=== PATIENT | female | born 1985 | race Caucasian/White ===

== ENCOUNTER 2019-10-18 10:24 | Inpatient (IN) | payer OTHER ==
[~2019-10-18 10:24] MED LIST: Lidocaine 1.5% with EPINEPHrine 1:200,000 5 ML Amp ONE; Lidocaine 2% with EPINEPHrine 1:200,000 20 ML SDV ONE
[2019-10-18] MEDS ORDERED: Sodium Chloride 0.9% 10 ML Syringe FLUSH PRN (13:06)
[2019-10-18] MEDS ORDERED: Oxytocin/Lactated Ringers 10 UNIT/1,000 ML BAG IV SCH ×2 (13:15)
[2019-10-18] MEDS: Lactated Ringers 1,000 ML IV SCH ×3 (16:09→20:22)
[2019-10-18] MEDS ORDERED: diphenhydrAMINE 50 MG/ML SDV IVPUSH PRN (16:39)
[2019-10-18] MEDS ORDERED: ePHEDrine 50 MG/ML SDV IVPUSH PRN (16:39)
--- NOTE | 2019-10-18 16:40 | PCM.PREANE ---
Preanesthetic Assessment - Anesthesia/Transfusion/Family Hx Anesthesia History: Prior Anesthesia Without Reaction Transfusion History: No Prior Transfusion(s) - Review of Systems General: No Symptoms Pulmonary: No Symptoms Cardiovascular: No Symptoms Gastrointestinal: No Symptoms Neurological: No Symptoms Other: Reports: None - Physical Assessment Vital Signs: Last Vital Signs Temp 98.0 F 10/18/19 13:06 Pulse 99 10/18/19 13:06 Resp 16 10/18/19 13:06 BP 116/78 10/18/19 13:06 Pulse Ox 97 10/18/19 13:06 Height: 1.63 m Weight: 80.467 kg ASA Class: 2 Mental Status: Alert & Oriented x3 Airway Class: Mallampati = 2 Dentition: Reports: Normal Dentition Thyro-Mental Finger Breadths: 3 Mouth Opening Finger Breadths: 3 ROM/Head Extension: Full Lungs: Clear to Auscultation, Normal Respiratory Effort Cardiovascular: Regular Rate, Regular Rhythm - Lab Values: Laboratory Last Values WBC 12.08 K/mm3 (3.98-10.04) H 10/18/19 13:53 RBC 4.54 M/mm3 (3.98-5.22) 10/18/19 13:53 Hgb 13.5 gm/dl (11.2-15.7) 10/18/19 13:53 Hct 41.1 % (34.1-44.9) 10/18/19 13:53 MCV 90.5 fl (79.4-94.8) 10/18/19 13:53 MCH 29.7 pg (25.6-32.2) 10/18/19 13:53 MCHC 32.8 g/dl (32.2-35.5) 10/18/19 13:53 RDW Std Deviation 47.2 fL (36.4-46.3) H 10/18/19 13:53 Plt Count 207 K/mm3 (182-369) 10/18/19 13:53 MPV 11.3 fl (9.4-12.3) 10/18/19 13:53 Neut % (Auto) 76.8 % (34.0-71.1) H 10/18/19 13:53 Lymph % (Auto) 13.4 % (19.3-51.7) L 10/18/19 13:53 Barren % (Auto) 8.4 % (4.7-12.5) 10/18/19 13:53 Eos % (Auto) 0.5 (0.7-5.8) L 10/18/19 13:53 Baso % (Auto) 0.2 % (0.1-1.2) 10/18/19 13:53 Neut # (Auto) 9.29 K/mm3 (1.56-6.13) H 10/18/19 13:53 Lymph # (Auto) 1.62 K/mm3 (1.18-3.74) 10/18/19 13:53 Barren # (Auto) 1.01 K/mm3 (0.24-0.36) H 10/18/19 13:53 Eos # (Auto) 0.06 K/mm3 (0.04-0.36) 10/18/19 13:53 Baso # (Auto) 0.02 K/mm3 (0.01-0.08) 10/18/19 13:53 - Allergies Allergies/Adverse Reactions: Allergies Allergy/AdvReac Type Severity Reaction Status Date / Time Penicillins Allergy Mild Rash Verified 10/18/19 13:06 - Acknowledgements Anesthesia Type Planned: Epidural Pt an Appropriate Candidate for the Planned Anesthesia: Yes Alternatives and Risks of Anesthesia Discussed w Pt/Guardian: Yes Pt/Guardian Understands and Agrees with Anesthesia Plan: Yes PreAnesthesia Questionnaire HEENT History: Reports: Allergic Rhinitis Other HEENT History: cat and dog allergy - Infectious Disease History Infectious Disease History: Reports: None - Past Surgical History Head Surgeries/Procedures: Reports: None HEENT Surgical History: Reports: Oral Surgery Other HEENT Surgeries/Procedures: wisdon teeth extraction 2016 - SUBSTANCE USE Smoking Status *Q: Never Smoker Second Hand Smoke Exposure: No Recreational Drug Use History: No - HOME MEDS Home Medications: Home Meds Acetaminophen [Tylenol Extra Strength] 1,000 mg PO Q4H PRN 10/18/19 [History] Albuterol/Ipratropium [Combivent Respimat] 4 gm IH ASDIRECTED PRN 10/18/19 [ History] Pnv,Calcium 72/Iron/Folic Acid [Preplus Ca-Fe 27 mg-FA 1 mg Tb] 1 tab PO DAILY 10/18/19 [History] Psyllium Husk [Metamucil] 0.4 gm PO DAILY 10/18/19 [History] diphenhydrAMINE [Benadryl] 50 mg PO BEDTIME PRN 10/18/19 [History] - CURRENT (IN HOUSE) MEDS Current Meds: Current Medications Lactated Ringer's (Ringers, Lactated) 1,000 mls @ 100 mls/hr IV ASDIRECTED KIMBERLY Last Admin: 10/18/19 16:09 Dose: 100 mls/hr Oxytocin/Lactated Ringer's (Pitocin In Lr 10 Units/1,000 Ml) 10 unit in 1,000 mls @ 500 mls/hr IV .CONTINUOUS KIMBERLY Oxytocin/Lactated Ringer's (Pitocin In Lr 10 Units/1,000 Ml) 10 unit in 1,000 mls @ 12 mls/hr IV TITRATE KIMBERLY; Protocol Sodium Chloride (Saline Flush) 10 ml FLUSH ASDIRECTED PRN PRN Reason: Keep Vein Open Last Admin: 10/18/19 16:07 Dose: 10 ml
[2019-10-18] MEDS: fentaNYL 100 MCG/2 ML SDV EPIDUR PRN (19:04)
[2019-10-18] MEDS: Bupivacaine/fentaNYL/NS 100 ML Bag EPIDUR PRN (19:06)
[2019-10-19] MEDS: Bupivacaine/fentaNYL/NS 100 ML Bag EPIDUR PRN ×2 (00:06→04:43)
[2019-10-19] MEDS: Lactated Ringers 1,000 ML IV SCH (01:14)
[2019-10-19] MEDS: fentaNYL 100 MCG/2 ML SDV EPIDUR PRN (05:30)
--- NOTE | 2019-10-19 11:10 | PCM.LDHP ---
L&D History of Present Illness - General Date of Service: 10/18/19 Admit Problem/Dx: Patient Status Order with Admit Dx/Problem 10/19/19 08:10 Patient Status [ADT] Routine Admission Diagnosis/Problem Admission Diagnosis/Problem Term - History of Present Illness Introduction:: 34 year old at 39w1d presents for induction of labor. PNC with me complicated by arrhythmia that was short term. Saw Dr. Geller. IOL recommended at 39w. Pain Score: 2 - Related Data Allergies/Adverse Reactions: Allergies Allergy/AdvReac Type Severity Reaction Status Date / Time Penicillins Allergy Mild Rash Verified 10/18/19 13:06 Home Medications: Home Meds Acetaminophen [Tylenol Extra Strength] 1,000 mg PO Q4H PRN 10/18/19 [History] Albuterol/Ipratropium [Combivent Respimat] 4 gm IH ASDIRECTED PRN 10/18/19 [ History] Pnv,Calcium 72/Iron/Folic Acid [Preplus Ca-Fe 27 mg-FA 1 mg Tb] 1 tab PO DAILY 10/18/19 [History] Psyllium Husk [Metamucil] 0.4 gm PO DAILY 10/18/19 [History] diphenhydrAMINE [Benadryl] 50 mg PO BEDTIME PRN 10/18/19 [History] Past Medical History HEENT History: Reports: Allergic Rhinitis Other HEENT History: cat and dog allergy - Infectious Disease History Infectious Disease History: Reports: None - Past Surgical History Head Surgeries/Procedures: Reports: None HEENT Surgical History: Reports: Oral Surgery Other HEENT Surgeries/Procedures: wisdon teeth extraction 2015 Social & Family History - Family History Family Medical History: Noncontributory - Tobacco Use Smoking Status *Q: Never Smoker Second Hand Smoke Exposure: No - Caffeine Use Caffeine Use: Reports: None - Recreational Drug Use Recreational Drug Use: No H&P Review of Systems - Review of Systems: Review Of Systems: See Below General: Reports: No Symptoms HEENT: Reports: No Symptoms Pulmonary: Reports: No Symptoms Cardiovascular: Reports: No Symptoms Gastrointestinal: Reports: No Symptoms Genitourinary: Reports: No Symptoms Musculoskeletal: Reports: No Symptoms Skin: Reports: No Symptoms Psychiatric: Reports: No Symptoms Neurological: Reports: No Symptoms Hematologic/Lymphatic: Reports: No Symptoms Immunologic: Reports: No Symptoms L&D Exam - Exam Exam: See Below - Vital Signs Vital Signs: Last Vital Signs Temp 36.7 C 10/18/19 13:06 Pulse 99 10/18/19 13:06 Resp 16 10/18/19 13:06 BP 116/78 10/18/19 13:06 Pulse Ox 97 10/18/19 13:06 Weight: 80.467 kg - OB Specific Fundal Height In cm: 39 Contraction Intensity: Mild Movement: Active Heart Tones: Present - Ron Score Ron Score Cervix Position: Midposition Ron Score Consistency: Soft Ron Score Effacement: 51-70% Ron Score Dilation: 3-4 cm - Exam General: Alert, Oriented HEENT: PERRLA, Conjunctiva Clear, EACs Clear, EOMI, Hearing Intact, Mucosa Moist & [place], Nares Patent, Normal Nasal Septum, Posterior Pharynx Clear, TMs Clear Neck: Supple, Trachea Midline Lungs: Clear to Auscultation, Normal Respiratory Effort Cardiovascular: Regular Rate, Regular Rhythm GI/Abdominal Exam: Normal Bowel Sounds, Soft, Non-Tender, No Organomegaly, No Distention, No Abnormal Bruit, No Mass, Pelvis Stable Back Exam: Normal Inspection, Full Range of Motion Extremities: Normal Inspection, Normal Range of Motion, Non-Tender, No Pedal Edema, Normal Capillary Refill Skin: Warm, Dry, Intact Neurological: Cranial Nerves Intact, Reflexes Equal Bilateral Psychiatric: Alert, Normal Affect, Normal Mood - Patient Data Lab Results Last 24 hrs: Laboratory Results - last 24 hr 10/18/19 10/18/19 Range/Units 13:53 13:53 WBC 12.08 H (3.98-10.04) K/mm3 RBC 4.54 (3.98-5.22) M/mm3 Hgb 13.5 (11.2-15.7) gm/dl Hct 41.1 (34.1-44.9) % MCV 90.5 (79.4-94.8) fl MCH 29.7 (25.6-32.2) pg MCHC 32.8 (32.2-35.5) g/dl RDW Std Deviation 47.2 H (36.4-46.3) fL Plt Count 207 (182-369) K/mm3 MPV 11.3 (9.4-12.3) fl Neut % (Auto) 76.8 H (34.0-71.1) % Lymph % (Auto) 13.4 L (19.3-51.7) % [place] % (Auto) 8.4 (4.7-12.5) % Eos % (Auto) 0.5 L (0.7-5.8) Baso % (Auto) 0.2 (0.1-1.2) % Neut # (Auto) 9.29 H (1.56-6.13) K/mm3 Lymph # (Auto) 1.62 (1.18-3.74) K/mm3 [place] # (Auto) 1.01 H (0.24-0.36) K/mm3 Eos # (Auto) 0.06 (0.04-0.36) K/mm3 Baso # (Auto) 0.02 (0.01-0.08) K/mm3 RPR Non-reactive (NONREACTIVE) Result Diagrams: 10/18/19 13:53 Problem List Initiated/Reviewed/Updated: Yes Orders Last 24hrs: Active Orders 24 hr Category Date Time Status Patient Status [ADT] Routine ADT 10/19/19 08:10 Active Activity as Tolerated [RC] PFP Care 10/18/19 13:06 Active Communication Order [RC] ASDIRECTED Care 10/18/19 13:06 Active Heart Tones [RC] ASDIRECTED Care 10/18/19 13:07 Active Notify Provider [RC] ASDIRECTED Care 10/18/19 16:39 Active Notify Provider [RC] PFP Care 10/18/19 13:06 Active Notify Provider [RC] PRN Care 10/18/19 13:06 Active Peripheral IV Care [RC] . DIRECTED Care 10/18/19 13:07 Active Vital Signs [RC] PER UNIT ROUTINE Care 10/18/19 13:06 Active Regular Diet [DIET] Diet 10/18/19 Lunch Active Bupivacaine/fentaNYL/NS [fentaNYL/Bupivacaine/NS 2 MCG- Med 10/18/19 16:39 Active 0.125% 100 ML] 100 ml EPIDUR ASDIRECTED PRN Lactated Ringers [Ringers, Lactated] 1,000 ml Med 10/18/19 13:15 Active IV ASDIRECTED Oxytocin/Lactated Ringers [Pitocin in LR 10 Units/1,000 Med 10/18/19 13:15 Active ML] 10 unit in 1,000 ml IV .CONTINUOUS Oxytocin/Lactated Ringers [Pitocin in LR 10 Units/1,000 Med 10/18/19 13:15 Active ML] 10 unit in 1,000 ml IV TITRATE Sodium Chloride 0.9% [Saline Flush] Med 10/18/19 13:06 Active 10 ml FLUSH ASDIRECTED PRN diphenhydrAMINE [Benadryl] Med 10/18/19 16:39 Active 25 mg IVPUSH Q6H PRN ePHEDrine [ePHEDrine sulfate] Med 10/18/19 16:39 Active 5 mg IVPUSH ASDIRECTED PRN fentaNYL [Sublimaze] Med 10/18/19 16:39 Active 100 mcg EPIDUR Q3H PRN Electronic Heart Tones Ext w TOCO [WOMSER] Oth 10/18/19 13:06 Ordered Routine Electronic Heart Tones Internal [WOMSER] Per Unit Oth 10/18/19 13:06 Ordered Routine Peripheral IV Insertion Adult [OM.PC] Routine Oth 10/18/19 13:06 Ordered Resuscitation Status Routine Resus Stat 10/18/19 13:06 Ordered Medication Orders Diphenhydramine HCl (Benadryl) 25 mg IVPUSH Q6H PRN PRN Reason: pruritis Ephedrine Sulfate (Ephedrine Sulfate) 5 mg IVPUSH ASDIRECTED PRN PRN Reason: Hypotension Fentanyl (Sublimaze) 100 mcg EPIDUR Q3H PRN PRN Reason: Pain Last Admin: 10/19/19 05:30 Dose: 100 mcg Admin: 10/18/19 19:04 Dose: 100 mcg Fentanyl/Bupivacaine HCl (Fentanyl/Bupivacaine/Ns 2 Mcg-0.125% 100 Ml) 100 ml EPIDUR ASDIRECTED PRN PRN Reason: Pain Last Admin: 10/19/19 04:43 Dose: 100 ml Admin: 10/19/19 00:06 Dose: 100 ml Admin: 10/18/19 19:06 Dose: 100 ml Lactated Ringer's (Ringers, Lactated) 1,000 mls @ 100 mls/hr IV ASDIRECTED KIMBERLY Last Admin: 10/19/19 01:14 Dose: 100 mls/hr Infusion: 10/18/19 22:22 Dose: 500 mls/hr Admin: 10/18/19 20:22 Dose: 500 mls/hr Infusion: 10/18/19 20:22 Dose: 500 mls/hr Admin: 10/18/19 18:31 Dose: 500 mls/hr Infusion: 10/18/19 18:30 Dose: 0 mls/hr Admin: 10/18/19 16:09 Dose: 100 mls/hr Oxytocin/Lactated Ringer's (Pitocin In Lr 10 Units/1,000 Ml) 10 unit in 1,000 mls @ 500 mls/hr IV .CONTINUOUS KIMBERLY Oxytocin/Lactated Ringer's (Pitocin In Lr 10 Units/1,000 Ml) 10 unit in 1,000 mls @ 12 mls/hr IV TITRATE KIMBERLY; Protocol Last Titration: 10/19/19 06:30 Dose: 6 munits/min, 36 mls/hr Titration: 10/19/19 05:58 Dose: 4 munits/min, 24 mls/hr Titration: 10/19/19 04:28 Dose: 3 munits/min, 18 mls/hr Admin: 10/19/19 03:16 Dose: 2 munits/min, 12 mls/hr Sodium Chloride (Saline Flush) 10 ml FLUSH ASDIRECTED PRN PRN Reason: Keep Vein Open Last Admin: 10/18/19 16:07 Dose: 10 ml Assessment/Plan Comment:: Term induction
--- NOTE | 2019-10-19 11:16 | PCM.SN ---
- Free Text/Narrative Note: Stage I - Patient presented for induction of labor. Progressed to complete with overall reassuring FHT. Epidural for anesthesia. Stage II - of viable male, weight 8#13oz, 8/9 at 1024. Head delivered in controlled manner over intact perineum. Body and shoulders atraumatically. Positive cry. Cord clamped and cut and baby placed on maternal abdomen. Cord and donor blood collected. Stage III - of intact placenta. EBL 400. 2nd degree MLL repaired with 3-0 vicryl.
[2019-10-19] MEDS ORDERED: Witch Hazel Medicated Pads 40/Jar TOP PRN (12:34)
[2019-10-19] MEDS ORDERED: Ibuprofen 600 MG Tab PO PRN (12:34)
[2019-10-19] MEDS ORDERED: Docusate Sodium 100 MG Cap PO PRN (12:34)
[2019-10-19] MEDS ORDERED: Benzocaine/Menthol 20%-0.5% Spray 56 GM Canister TOP PRN (12:55)
--- NOTE | 2019-10-20 07:01 | PCM.DCSUM1 ---
Discharge Summary - Hospital Course Diagnosis: Stroke: No - Discharge Data Discharge Date: 10/20/19 Discharge Disposition: Home, Self-Care 01 Condition: Good - Referral to Home Health Primary Care Physician: Maki Henson MD - Patient Instructions Diet: Usual Diet as Tolerated Activity: No Strenuous Activities Activity, Other: pelvic rest Driving: May Drive Today Notify Provider of: Fever, Increased Pain, Swelling and Redness, Drainage, Nausea and/or Vomiting - Discharge Plan *PRESCRIPTION DRUG MONITORING PROGRAM REVIEWED*: No *COPY OF PRESCRIPTION DRUG MONITORING REPORT IN PATIENT FRANK: No Home Medications: Home Meds Acetaminophen [Tylenol Extra Strength] 1,000 mg PO Q4H PRN 10/18/19 [History] Albuterol/Ipratropium [Combivent Respimat] 4 gm IH ASDIRECTED PRN 10/18/19 [ History] Pnv,Calcium 72/Iron/Folic Acid [Preplus Ca-Fe 27 mg-FA 1 mg Tb] 1 tab PO DAILY 10/18/19 [History] Psyllium Husk [Metamucil] 0.4 gm PO DAILY 10/18/19 [History] diphenhydrAMINE [Benadryl] 50 mg PO BEDTIME PRN 10/18/19 [History] Referrals: Maki Henson MD [Primary Care Provider] - (2 or 6 weeks. Call to let us know how you are doing and we can plan from there.) - Discharge Summary/Plan Comment DC Time >30 min.: No - General Info Date of Service: 10/20/19 Functional Status: Reports: Pain Controlled - Review of Systems General: Reports: No Symptoms HEENT: Reports: No Symptoms Pulmonary: Reports: No Symptoms Cardiovascular: Reports: No Symptoms Gastrointestinal: Reports: No Symptoms Genitourinary: Reports: No Symptoms Musculoskeletal: Reports: No Symptoms Skin: Reports: No Symptoms Neurological: Reports: No Symptoms Psychiatric: Reports: No Symptoms - Patient Data Vitals - Most Recent: Last Vital Signs Temp 36.7 C 10/20/19 05:09 Pulse 89 10/20/19 05:09 Resp 16 10/20/19 05:09 BP 90/50 L 10/20/19 05:09 Pulse Ox 94 L 10/20/19 05:09 Weight - Most Recent: 80.467 kg Med Orders - Current: Current Medications Benzocaine/Menthol (Dermoplast Pain Relief [place]) 56 gm TOP ASDIRECTED PRN PRN Reason: Pain Last Admin: 10/19/19 13:10 Dose: 1 can Docusate Sodium (Colace) 100 mg PO BID PRN PRN Reason: Constipation Ibuprofen (Motrin) 600 mg PO Q6H PRN PRN Reason: Mild pain or fever Last Admin: 10/19/19 12:57 Dose: 600 mg Witch Kathy (Tucks) 1 pad TOP ASDIRECTED PRN PRN Reason: Pain Last Admin: 10/19/19 12:54 Dose: 1 tub Discontinued Medications Diphenhydramine HCl (Benadryl) 25 mg IVPUSH Q6H PRN PRN Reason: pruritis Ephedrine Sulfate (Ephedrine Sulfate) 5 mg IVPUSH ASDIRECTED PRN PRN Reason: Hypotension Fentanyl (Sublimaze) 100 mcg EPIDUR Q3H PRN PRN Reason: Pain Last Admin: 10/19/19 05:30 Dose: 100 mcg Fentanyl/Bupivacaine HCl (Fentanyl/Bupivacaine/Ns 2 Mcg-0.125% 100 Ml) 100 ml EPIDUR ASDIRECTED PRN PRN Reason: Pain Last Admin: 10/19/19 04:43 Dose: 100 ml Lactated Ringer's (Ringers, Lactated) 1,000 mls @ 100 mls/hr IV ASDIRECTED KIMBERLY Last Admin: 10/19/19 01:14 Dose: 100 mls/hr Oxytocin/Lactated Ringer's (Pitocin In Lr 10 Units/1,000 Ml) 10 unit in 1,000 mls @ 500 mls/hr IV .CONTINUOUS KIMBERLY Oxytocin/Lactated Ringer's (Pitocin In Lr 10 Units/1,000 Ml) 10 unit in 1,000 mls @ 12 mls/hr IV TITRATE KIMBERLY; Protocol Last Titration: 10/19/19 06:30 Dose: 6 munits/min, 36 mls/hr Sodium Chloride (Saline Flush) 10 ml FLUSH ASDIRECTED PRN PRN Reason: Keep Vein Open Last Admin: 10/18/19 16:07 Dose: 10 ml - Exam General: Reports: Alert, Oriented HEENT: Reports: Pupils Equal, Pupils Reactive, EOMI, Mucous Membr. Moist/[place] Neck: Reports: Supple Lungs: Reports: Clear to Auscultation, Normal Respiratory Effort Cardiovascular: Reports: Regular Rate, Regular Rhythm GI/Abdominal Exam: Normal Bowel Sounds, Soft, Non-Tender, No Organomegaly, No Distention, No Abnormal Bruit, No Mass, Pelvis Stable (Female) Exam: Adnexal Mass Back Exam: Reports: Normal Inspection, Full Range of Motion Extremities: Normal Inspection, Normal Range of Motion, Non-Tender, No Pedal Edema, Normal Capillary Refill Skin: Reports: Warm, Dry, Intact Wound/Incisions: Reports: Healing Well Neurological: Reports: No New Focal Deficit Psy/Mental Status: Reports: Alert, Normal Affect, Normal Mood
--- NOTE | 2019-10-20 08:23 | PCM48HPAN ---
Post Anesthesia Note - EVALUATION WITHIN 48HRS OF ANESTHETIC Vital Signs in Normal Range: Yes Patient Participated in Evaluation: Yes Respiratory Function Stable: Yes Airway Patent: Yes Cardiovascular Function Stable: Yes Hydration Status Stable: Yes Pain Control Satisfactory: Yes Nausea and Vomiting Control Satisfactory: Yes Mental Status Recovered: Yes Vital Signs: Last Vital Signs Temp 36.7 C 10/20/19 05:09 Pulse 89 10/20/19 05:09 Resp 16 10/20/19 05:09 BP 90/50 L 10/20/19 05:09 Pulse Ox 94 L 10/20/19 05:09
== END 2019-10-20 16:30 | disposition home or self-care (01) | DRG 807 ==
LOC: JD.OB 10:24 → OBSVTOIN 10-19 10:24 → JD.OB 10-19 10:25
PROVIDERS: ADMIT Obstetrics & Gynecology; ATTEND Obstetrics & Gynecology
PROC: 10E0XZZ Delivery of Products of Conception, External Approach (ICD-10-PCS; principal; 2019-10-19)
PROC: 0KQM0ZZ Repair Perineum Muscle, Open Approach (ICD-10-PCS; 2019-10-19)
PROC: 3E0R3BZ Introduction of Anesthetic Agent into Spinal Canal, Percutaneous Approach (ICD-10-PCS; 2019-10-19)
DX: O36.8330 Maternal care for abnormalities of the fetal heart rate or rhythm, third trimester, not applicable or unspecified (principal); Z37.0 Single live birth; Z88.0 Allergy status to penicillin; Z3A.39 39 weeks gestation of pregnancy; Z79.51 Long term (current) use of inhaled steroids; Z79.899 Other long term (current) drug therapy; O70.1 Second degree perineal laceration during delivery
CPT/HCPCS: 01967; 36415; 51701; 51702; 59025; 59409; 85025; 86592; A9270-GY; J2590; J3010; J7120

== ENCOUNTER 2022-06-22 11:41 | Inpatient (IN) | payer OTHER ==
[~2022-06-22 11:41] MED LIST changes: +Bupivacaine 0.25% 10 ML SDV ONE; -Lidocaine 1.5% with EPINEPHrine 1:200,000 5 ML Amp ONE; -Lidocaine 2% with EPINEPHrine 1:200,000 20 ML SDV ONE; +Phenylephrine HCl In 0.9% NaCl 1 MG/10 ML Vial ONE; +ePHEDrine 50 MG/ML SDV ONE
[2022-06-22] MEDS ORDERED: Nalbuphine HCl 10 MG/ 1ML Amp IVPUSH PRN (12:27)
[2022-06-22] MEDS ORDERED: Methylergonovine 0.2 MG/1 ML Amp IM PRN (12:27)
[2022-06-22] MEDS ORDERED: Oxytocin/Lactated Ringers 10 UNIT/1,000 ML BAG IV SCH ×3 (12:30→22:15)
[2022-06-22] MEDS: Lactated Ringers 1,000 ML IV SCH ×3 (13:00→17:27)
[2022-06-22] MEDS ORDERED: Bupivacaine/fentaNYL/NS 100 ML Bag EPIDUR PRN (16:30)
[2022-06-22] MEDS ORDERED: ePHEDrine 50 MG/ML SDV IVPUSH PRN (16:30)
[2022-06-22] MEDS ORDERED: diphenhydrAMINE 50 MG/ML SDV IVPUSH PRN (16:30)
[2022-06-22] MEDS ORDERED: fentaNYL 100 MCG/2 ML SDV EPIDUR PRN (16:30)
[2022-06-22] MEDS ORDERED: Witch Hazel Medicated Pads 40/Jar TOP PRN (20:04)
[2022-06-22] MEDS ORDERED: Benzocaine/Menthol 20%-0.5% Spray 78 GM Cannister TOP PRN (20:04)
[2022-06-22] MEDS ORDERED: Docusate Sodium 100 MG Cap PO PRN (20:04)
[2022-06-22] MEDS: Ibuprofen 600 MG Tab PO PRN (21:45)
[2022-06-22] MEDS ORDERED: Oxytocin/Lactated Ringers 10 UNIT/1,000 ML BAG IV ONE (21:55)
[2022-06-22] MEDS ORDERED: Methylergonovine 0.2 MG/1 ML Amp IM STA (22:17)
[2022-06-23] MEDS: Acetaminophen 325 MG Tab PO PRN ×2 (03:20→09:04)
[2022-06-23] MEDS: Ibuprofen 600 MG Tab PO PRN ×2 (06:00→16:32)
== END 2022-06-23 19:38 | disposition home or self-care (01) | DRG 807 ==
LOC: JD.OBCHECK 11:41 → JD.OB 12:38 → OBSVTOIN 19:05 → JD.OB 19:06
PROVIDERS: ADMIT Obstetrics & Gynecology; ATTEND Obstetrics & Gynecology
PROC: 10E0XZZ Delivery of Products of Conception, External Approach (ICD-10-PCS; principal; 2022-06-22)
PROC: 3E0R3BZ Introduction of Anesthetic Agent into Spinal Canal, Percutaneous Approach (ICD-10-PCS; 2022-06-22)
PROC: 00HU03Z Insertion of Infusion Device into Spinal Canal, Open Approach (ICD-10-PCS; 2022-06-22)
DX: O99.52 Diseases of the respiratory system complicating childbirth (principal); Z37.0 Single live birth; J45.909 Unspecified asthma, uncomplicated; O66.0 Obstructed labor due to shoulder dystocia; Z3A.39 39 weeks gestation of pregnancy
CPT/HCPCS: 36415; 51701; 59025; 84112; 85025; 86592; 86850; 86900; 86901; A9270-GY; J2210; J2590; J3010; J3490; J7120